=== PATIENT | male | born 1960 | race Caucasian/White ===

== ENCOUNTER 2016-11-18 06:36 | Emergency (ER) | payer OTHER ==
[2016-11-18 07:43] LABS: BASOPHIL % 0.3 % (0-2); PLATELET COUNT 219 x10^3mcL (130-400); RED CELL DISTRIBUTION WIDTH 12.8 % (11.5-14.5)
[2016-11-18 07:48] LABS: ALBUMIN 3.4 g/dL (3.4-5.0); ALKALINE PHOSPHATASE 55 U/L (46-116); ALT/SGPT 20 U/L (16-63); AMYLASE 52 U/L (25-115); AST/SGOT 12 U/L (15-37); CALCIUM 8.9 mg/dL (8.5-10.1); CHLORIDE SERUM 109 mmol/L (98-107); GFR1 > 60 mL/min; GLUCOSE SERUM 119 mg/dL (74-106); LIPASE 118 IU/L (73-393); POTASSIUM SERUM 4.7 mmol/L (3.5-5.1); SODIUM SERUM 144 mmol/L (136-145); TOTAL PROTEIN, SERUM 7.2 g/dL (6.4-8.2)
[2016-11-18 07:58] LABS: CARBON DIOXIDE 24.5 mmol/L (21-32)
[2016-11-18 14:11] VITALS: BP 144/86
== END 2016-11-18 14:11 | disposition home or self-care (01) ==
LOC: ED 06:36
PROVIDERS: Emergency Medicine
DX: R10.13 Epigastric pain (principal); R11.0 Nausea; R51 Headache; Z98.890 Other specified postprocedural states
CPT/HCPCS: 83880; J2405; J3010; J3490; Q0092

== ENCOUNTER 2016-11-19 05:11 | Emergency (ER) | payer OTHER ==
[2016-11-19 06:51] VITALS: BP 163/100
== END 2016-11-19 06:51 | disposition home or self-care (01) ==
LOC: ED 05:11
DX: R10.12 Left upper quadrant pain (principal); I10 Essential (primary) hypertension
CPT/HCPCS: J2270

== ENCOUNTER 2018-01-13 00:34 | Emergency (ER) | payer OTHER ==
[2018-01-13 00:40] VITALS: Ht 172.7 cm
[2018-01-13 02:09] VITALS: BP 123/74
== END 2018-01-13 02:09 | disposition home or self-care (01) ==
LOC: ED 00:34
DX: F41.9 Anxiety disorder, unspecified (principal); G89.29 Other chronic pain; M54.5 Low back pain; F11.20 Opioid dependence, uncomplicated; I10 Essential (primary) hypertension; Z98.890 Other specified postprocedural states
CPT/HCPCS: J2060; J2270

== ENCOUNTER 2018-03-19 10:14 | Emergency (ER) | payer OTHER ==
[~2018-03-19] VITALS: Ht 172.7 cm; Wt 75.7 kg
[2018-03-19 10:24] VITALS: Ht 172.7 cm; Wt 75.7 kg
[2018-03-19 11:57] VITALS: BP 14/88
== END 2018-03-19 11:57 | disposition home or self-care (01) ==
LOC: ED 10:14
DX: M54.16 Radiculopathy, lumbar region (principal); G89.29 Other chronic pain; M54.5 Low back pain; I10 Essential (primary) hypertension; F41.9 Anxiety disorder, unspecified; K42.9 Umbilical hernia without obstruction or gangrene; Z98.890 Other specified postprocedural states
CPT/HCPCS: J1100; J1885